=== PATIENT | female | born 1985 | race African-American/Black ===

== ENCOUNTER 2017-09-12 18:01 | Emergency (ER) | payer BC ==
[2017-09-12 18:34] VITALS: BP 124/79; PULSE 102; TEMP 98.5; BMI 36.3
[2017-09-12] MEDS ORDERED: PENICILLIN G BENZATHINE 1,200,000 UNIT/2 ML PFS IM ONE (18:53)
--- NOTE | 2017-09-12 19:08 | PDOC ---
History of Present Illness - General Chief Complaint: Sore Throat Stated Complaint: COLD SYMPTOMS Time Seen by Provider: 09/12/17 18:46 History Source: Patient Exam Limitations: No Limitations - History of Present Illness Initial Comments: 09/12/17 18:55 Patient came for evaluation of severe sore throat pain runny nose and general malaise 2 days. States onset was 2 days ago and is progressively worsened. Has used [id number] medications with minimal resolved. Timing/Duration: 24 hours Severity: moderate, severe Modifying Factors: improves with: cold therapy Associated Symptoms: reports: fever/chills, headaches Past History - Travel Traveled outside of the country in the last 30 days: No Close contact w/someone who was outside of country & ill: No - Past Medical History Allergies/Adverse Reactions: Allergies Allergy/AdvReac Type Severity Reaction Status Date / Time No Known Allergies Allergy Verified 09/12/17 18:31 Home Medications: Ambulatory Orders NK [No Known Home Medication] 09/12/17 COPD: No - Surgical History Abdominal Surgery: (UTERINE POLLOP REMOVED) - Suicide/Smoking/Psychosocial Hx Smoking History: Never smoked Have you smoked in the past 12 months: No Information on smoking cessation initiated: No Hx Alcohol Use: No Drug/Substance Use Hx: No Substance Use Type: None Review of Systems - Review of Systems Able to Perform ROS?: Yes Is the patient limited Vietnamese proficient: Yes Constitutional: Yes: Symptoms Reported, See HPI, Fever, Malaise HEENTM: Yes: Symptoms Reported, See HPI, Nose Congestion, Throat Pain, Throat Swelling, Difficulty Swallowing Respiratory: Yes: Symptoms reported, See HPI ABD/GI: Yes: Symptoms Reported : No: Symptoms Reported Integumentary: Yes: See HPI. No: Symptoms Reported Neurological: Yes: Symptoms reported, See HPI, Headache All Other Systems: Reviewed and Negative *Physical Exam - Vital Signs Last Vital Signs Temp Pulse Resp BP Pulse Ox 98.5 F 102 H 20 124/79 96 09/12/17 18:32 09/12/17 18:32 09/12/17 18:32 09/12/17 18:32 09/12/17 18:32 - Physical Exam General Appearance: Yes: Nourished, Appropriately Dressed, Apparent Distress, Mild Distress HEENT: positive: SOPHIA, Normal ENT Inspection, TMs Normal, Pharyngeal Erythema, Tonsillar Exudate, Tonsillar Erythema, Nasal Congestion, Rhinorrhea Neck: positive: Tender, Supple, Lymphadenopathy (R), Lymphadenopathy (L) Respiratory/Chest: positive: Lungs Clear, Normal Breath Sounds Cardiovascular: positive: Regular Rate Gastrointestinal/Abdominal: positive: Soft. 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 Patient had no reaction after 30 minutes of observation *DC/Admit/Observation/Transfer Diagnosis at time of Disposition: Pharyngitis Qualifiers: Pharyngitis/tonsillitis etiology: unspecified etiology Qualified Code(s): J02.9 - Acute pharyngitis, unspecified - Discharge Dispostion Disposition: HOME Condition at time of disposition: Stable Admit: No - Referrals - Patient Instructions Printed Discharge Instructions: DI for Pharyngitis/Tonsillopharyngitis -- Adult Additional Instructions: Rest, drink lots of fluids: Teas, water, soups Eat cold things: Ice cream, ice pops, ice chips Saltwater gargles Steamy showers/seem to face break up mucus Avoid contact with others until fevers and pain resolved Lots of handwashing and good hygiene, this is contagious You have been treated with Bicillin LA 1.2 million units injection which is a one-time treatment for strep pharyngitis. You will not need to take any further antibiotics. Tylenol or Motrin for fever and pain Followup with private physician in one to 2 days as needed if not improving Return to emergency department for worsened symptoms, fevers, dehydration - Post Discharge Activity Forms/Work/School Notes: Back to Work
[2017-09-12] MEDS ORDERED: PENICILLIN G BENZATHINE 2,400,000 UNIT/4 ML PFS ONE (19:22)
== END 2017-09-12 19:46 | disposition home or self-care (01) ==
LOC: JERFT 18:01
DX: J02.9 Acute pharyngitis, unspecified (principal)
CPT/HCPCS: 84703; 99281-25